=== PATIENT | male | born 1995 | race Asian ===

== ENCOUNTER 2016-05-05 00:48 | Outpatient (CLI) | payer OTHER | END 2016-05-05 00:55 | disposition short-term general hospital (02) | LOC: AMB 00:48 | DX: R06.09 Other forms of dyspnea (principal); R06.2 Wheezing | CPT/HCPCS: A0425; A0427 ==

== ENCOUNTER 2016-05-05 01:01 | Emergency (ER) | payer OTHER ==
[~2016-05-05] VITALS: Ht 172.7 cm; Wt 56.7 kg
[2016-05-05 01:21] LABS: PLATELET COUNT 325 K/uL (142-355)
[2016-05-05 01:31] LABS: POTASSIUM 3.4 mmol/L (3.6-5.2); SODIUM 138 mmol/L (136-145)
[2016-05-05 01:46] VITALS: BP 127/74; TEMP 99.1
== END 2016-05-05 01:48 | disposition home or self-care (01) ==
LOC: ED 01:01
PROVIDERS: Emergency Medicine
DX: J45.901 Unspecified asthma with (acute) exacerbation (principal)
CPT/HCPCS: 80053; 85027; 96374; 99284; J1100; J2930

== ENCOUNTER 2017-08-09 22:18 | Emergency (ER) | payer OTHER ==
[~2017-08-09] VITALS: Ht 170.2 cm; Wt 61.2 kg
[2017-08-09 23:14] VITALS: BP 120/60; TEMP 98.8
== END 2017-08-09 23:15 | disposition home or self-care (01) ==
LOC: ED 22:18
DX: F10.10 Alcohol abuse, uncomplicated (principal)
CPT/HCPCS: 96372; 99283; J2405

== ENCOUNTER 2018-01-14 11:24 | Emergency (ER) | payer OTHER ==
[~2018-01-14] VITALS: Ht 170.2 cm; Wt 63.5 kg
[2018-01-14 11:35] VITALS: TEMP 96.3
[2018-01-14 12:18] LABS: PLATELET COUNT 300 K/uL (142-355)
[2018-01-14 15:33] VITALS: BP 126/76
== END 2018-01-14 15:33 | disposition home or self-care (01) ==
LOC: ED 11:24
DX: K29.60 Other gastritis without bleeding (principal); R10.84 Generalized abdominal pain; F12.10 Cannabis abuse, uncomplicated
CPT/HCPCS: 80053; 80307; 81000; 82150; 83690; 85027; 86318; 96374; 96375; 99284; J1885; J2550; Q9963

== ENCOUNTER 2018-10-19 08:04 | Emergency (ER) | payer OTHER ==
[~2018-10-19] VITALS: Ht 170.2 cm; Wt 63.5 kg
[2018-10-19 08:16] VITALS: BP 119/71; TEMP 97.7
== END 2018-10-19 08:56 | disposition home or self-care (01) ==
LOC: ED 08:04
DX: K04.7 Periapical abscess without sinus (principal); K08.89 Other specified disorders of teeth and supporting structures; K01.1 Impacted teeth
CPT/HCPCS: 96372; 99282; J1885

== ENCOUNTER 2019-02-14 12:36 | Emergency (ER) | payer OTHER ==
[~2019-02-14] VITALS: Ht 170.2 cm; Wt 63.5 kg
[2019-02-14 15:00] VITALS: BP 110/59; TEMP 97.9
== END 2019-02-14 15:00 | disposition home or self-care (01) ==
LOC: ED 12:36
DX: J20.9 Acute bronchitis, unspecified (principal); M62.830 Muscle spasm of back; X50.1XXA Overexertion from prolonged static or awkward postures, initial encounter
CPT/HCPCS: 96372; 99283; J1885

== ENCOUNTER 2019-04-27 00:48 | Outpatient (CLI) | payer OTHER | END 2019-04-27 00:52 | disposition short-term general hospital (02) | LOC: AMB 00:48 | DX: S01.511A Laceration without foreign body of lip, initial encounter (principal); Y09 Assault by unspecified means | CPT/HCPCS: A0425; A0429 ==

== ENCOUNTER 2019-04-27 00:53 | Emergency (ER) | payer OTHER ==
[~2019-04-27] VITALS: Ht 170.2 cm; Wt 61.2 kg
[2019-04-27 02:01] VITALS: BP 129/91; TEMP 98.2
== END 2019-04-27 02:01 | disposition home or self-care (01) ==
LOC: ED 00:53
PROC: 0CQ00ZZ Repair Upper Lip, Open Approach (ICD-10-PCS; principal; 2019-04-27)
DX: S01.511A Laceration without foreign body of lip, initial encounter (principal); Y09 Assault by unspecified means
CPT/HCPCS: 90471; 90715; 96372; 99283; J7040

== ENCOUNTER 2019-05-02 11:44 | Emergency (ER) | payer OTHER ==
[~2019-05-02] VITALS: Ht 170.2 cm; Wt 63.5 kg
[2019-05-02 12:00] VITALS: BP 110/60; TEMP 98.1
== END 2019-05-02 13:18 | disposition home or self-care (01) ==
LOC: ED 11:44
DX: G89.21 Chronic pain due to trauma (principal); K13.79 Other lesions of oral mucosa; F17.210 Nicotine dependence, cigarettes, uncomplicated
CPT/HCPCS: 96372; 99283; J1885; J2930

== ENCOUNTER 2019-07-01 03:55 | Emergency (ER) | payer OTHER ==
[~2019-07-01] VITALS: Ht 170.2 cm; Wt 61.7 kg
[2019-07-01 04:45] VITALS: BP 97/63; TEMP 97.9
== END 2019-07-01 04:45 | disposition home or self-care (01) ==
LOC: ED 03:55
DX: J45.901 Unspecified asthma with (acute) exacerbation (principal); F17.290 Nicotine dependence, other tobacco product, uncomplicated
CPT/HCPCS: 96374; 99283; 99284; J2930

== ENCOUNTER 2019-08-17 06:47 | Emergency (ER) | payer OTHER ==
[~2019-08-17] VITALS: Ht 170.2 cm; Wt 61.7 kg
[2019-08-17 07:06] VITALS: BP 128/85; TEMP 98.1
== END 2019-08-17 07:26 | disposition home or self-care (01) ==
LOC: ED 06:47
DX: S00.86XA Insect bite (nonvenomous) of other part of head, initial encounter (principal); L08.9 Local infection of the skin and subcutaneous tissue, unspecified; W57.XXXA Bitten or stung by nonvenomous insect and other nonvenomous arthropods, initial encounter; Y92.89 Other specified places as the place of occurrence of the external cause
CPT/HCPCS: 99282

== ENCOUNTER 2020-12-08 01:36 | Emergency (ER) | payer OTHER ==
[~2020-12-08] VITALS: Ht 172.7 cm; Wt 64.0 kg
[2020-12-08 02:31] VITALS: BP 112/67; TEMP 98.4
== END 2020-12-08 02:31 | disposition home or self-care (01) ==
LOC: ED 01:36
DX: K08.89 Other specified disorders of teeth and supporting structures (principal)
CPT/HCPCS: 96372; 99283; J0696; J1885

== ENCOUNTER 2021-06-07 01:59 | Emergency (ER) | payer OTHER ==
[~2021-06-07] VITALS: Ht 172.7 cm; Wt 64.0 kg
[2021-06-07 03:34] VITALS: BP 112/76; TEMP 98.2
== END 2021-06-07 03:34 | disposition home or self-care (01) ==
LOC: ED 01:59
DX: J45.901 Unspecified asthma with (acute) exacerbation (principal); F17.210 Nicotine dependence, cigarettes, uncomplicated
CPT/HCPCS: 94664; 96375; 99284; J2930

== ENCOUNTER 2021-08-16 07:28 | Emergency (ER) | payer OTHER ==
[~2021-08-16] VITALS: Ht 172.7 cm; Wt 59.9 kg
[2021-08-16 07:45] VITALS: BP 101/65
[2021-08-16] MEDS ORDERED: PRED20TA27 PO (08:25)
[2021-08-16] MEDS ORDERED: PROVENTIL108 MCG/AC INH (08:25)
[2021-08-16 08:40] VITALS: TEMP 98.8
== END 2021-08-16 08:41 | disposition home or self-care (01) ==
LOC: ED 07:28
DX: J45.901 Unspecified asthma with (acute) exacerbation (principal); F17.210 Nicotine dependence, cigarettes, uncomplicated
CPT/HCPCS: 94664; 96372; 99283; J2920

== ENCOUNTER 2021-09-26 02:48 | Emergency (ER) | payer OTHER ==
[~2021-09-26] VITALS: Ht 172.7 cm; Wt 63.5 kg
[~2021-09-26 02:48] MED LIST: PRED20TA27 PO; PROVENTIL108 MCG/AC INH
[2021-09-26 04:00] VITALS: BP 108/75; TEMP 98.2
== END 2021-09-26 04:00 | disposition home or self-care (01) ==
LOC: ED 02:48
DX: J45.901 Unspecified asthma with (acute) exacerbation (principal); F17.210 Nicotine dependence, cigarettes, uncomplicated
CPT/HCPCS: 94664; 96372; 99283; J2920

== ENCOUNTER 2021-09-30 01:52 | Emergency (ER) | payer OTHER ==
[~2021-09-30] VITALS: Ht 172.7 cm; Wt 63.5 kg
[2021-09-30 02:30] LABS: PLATELET COUNT 292 K/uL (142-355)
[2021-09-30 02:33] LABS: POTASSIUM 3.4 mmol/L (3.6-5.2); SODIUM 140 mmol/L (136-145)
[2021-09-30 03:00] LABS: PARTIAL THROMBOPLASTIN TIME 25.7 SECONDS (24.5-33.6)
[2021-09-30 03:07] VITALS: BP 116/85; TEMP 98.5
== END 2021-09-30 03:15 | disposition home or self-care (01) ==
LOC: ED 01:52
PROVIDERS: Hospitalist
DX: J45.901 Unspecified asthma with (acute) exacerbation (principal)
CPT/HCPCS: 36415; 80053; 82550; 83880; 84484; 85027; 85610; 85730; 93005; 94664; 96374; 99284; J2930

== ENCOUNTER 2021-10-13 10:35 | Emergency (ER) | payer OTHER ==
[~2021-10-13] VITALS: Ht 170.2 cm; Wt 62.6 kg
[2021-10-13 11:33] VITALS: BP 112/61; TEMP 98.3
== END 2021-10-13 11:34 | disposition home or self-care (01) ==
LOC: ED 10:35
DX: S00.561A Insect bite (nonvenomous) of lip, initial encounter (principal); T78.3XXA Angioneurotic edema, initial encounter; W57.XXXA Bitten or stung by nonvenomous insect and other nonvenomous arthropods, initial encounter; Y92.89 Other specified places as the place of occurrence of the external cause
CPT/HCPCS: 96372; 99283; J1200; J2930

== ENCOUNTER 2022-07-25 02:37 | Emergency (ER) | payer OTHER ==
[~2022-07-25] VITALS: Ht 170.2 cm; Wt 77.1 kg
[2022-07-25 02:40] VITALS: TEMP 98.5
[2022-07-25 03:14] LABS: PLATELET COUNT 324 K/uL (142-355)
[2022-07-25 03:17] LABS: POTASSIUM 4.3 mmol/L (3.6-5.2)
[2022-07-25 03:50] VITALS: BP 112/71
== END 2022-07-25 03:50 ==
LOC: ED 02:37
PROVIDERS: Family Medicine
DX: J45.901 Unspecified asthma with (acute) exacerbation (principal)
CPT/HCPCS: 36415; 80053; 85027; 94664; 96372; 99283; J2930